=== PATIENT | female | born 1960 | race African-American/Black ===

== ENCOUNTER → 2024-03-21 | Day surgery (SDC) | payer MEDICARE ==
[~2024-03-21] MED LIST: BUPIVACAINE HCL 0.5% INJ 30 ML VIAL INJ ONE; BUPROPION XL150 MG PO; CRESTOR40 MG PO; DEXAMETHASONE SOD PHOS INJ 4 MG/ML SDV ONE; FENTANYL CITRATE/PF 100MCG/2 ML INJ ONE; KETOROLAC TROMETHAMINE 30 MG/ML VIAL ONE; LIDOCAINE 1% W/EPINEPHRINE 20 ML VIAL ONE; LIDOCAINE HCL 2% LOCAL INJ 5 ML SDV VIAL INJ ONE; NP THYROID60 MG PO; ONDANSETRON HCL INJ 2MG/ML 2ML 2 MG/ML VIAL ONE; OZEMPIC0.25 MG/02 SC; PROGESTERONE200 MG PO; PROPOFOL IV EMULSION 10 MG/ML 20 ML VIAL ONE; SEVOFLURANE INHAL SOLN 250 ML PEN BTL ONE; TRIAMTERENE-HCTZ1 EA PO; VITAMIN E400 UNI1 PO
[2024-03-21] MEDS: LACTATED RINGER'S 1,000 ML ONE (06:06)
[2024-03-21] MEDS: CEFAZOLIN SODIUM 2 GM ONE (06:06)
[2024-03-21 06:42] LABS: BASOPHILS # (AUTO) 0.1 (0.0-0.1); BASOPHILS % 1.2 % (0.0-1.0); EOSINOPHILS # (AUTO) 0.2 (0.0-0.4); EOSINOPHILS % 2.9 % (0.0-6.0); HEMATOCRIT 44.8 % (34.2-44.1); HEMOGLOBIN 14.1 g/dL (12.0-16.0); LYMPHOCYTES % 33.7 % (18.0-39.1); MEAN CORPUSCULAR HEMOGLOBIN 27.6 pg (28-32); MEAN CORPUSCULAR HGB CONC 31.5 g/dL (31-35); MEAN CORPUSCULAR VOLUME 87.8 fL (81-99); MONOCYTES # (AUTO) 0.7 (0.2-0.8); MONOCYTES % 11.2 % (4.4-11.3); NEUTROPHILS % 50.5 % (38.7-80.0); PLATELET COUNT 192 x10e3/uL (140-360); RED CELL DISTRIBUTION WIDTH 13.6 % (11.7-14.4)
[2024-03-21 07:08] LABS: ALBUMIN 3.7 g/dL (3.5-5.0); ALBUMIN/GLOBULIN RATIO 1.2 (0.8-2.0); ANION GAP 12.3 mmol/L (8-16); BILIRUBIN,TOTAL 0.3 mg/dL (0.2-1.2); CREATININE, SERUM 0.8 mg/dL (0.57-1.11); POTASSIUM 4.3 mmol/L (3.5-5.1); TOTAL PROTEIN 6.8 g/dL (6.5-8.1)
[2024-03-21 08:29] VITALS: TEMP 97.4
[2024-03-21] MEDS: HYDROCODONE/APAP 7.5MG-325MG 1 EA TAB ONE (08:55)
[2024-03-21 09:35] VITALS: BP 161/92; PULSE 71; RESP 15; O2SAT 100
== END | disposition home or self-care (01) ==
LOC: OR 05:37
PROVIDERS: ATTEND Orthopaedic Surgery
DX: S83.232A Complex tear of medial meniscus, current injury, left knee, initial encounter (principal); S83.282A Other tear of lateral meniscus, current injury, left knee, initial encounter; M65.162 Other infective (teno)synovitis, left knee; M22.42 Chondromalacia patellae, left knee; M67.52 Plica syndrome, left knee; I10 Essential (primary) hypertension; E78.5 Hyperlipidemia, unspecified; E03.9 Hypothyroidism, unspecified; M19.90 Unspecified osteoarthritis, unspecified site; X58.XXXA Exposure to other specified factors, initial encounter; Y93.41 Activity, dancing; Y99.8 Other external cause status; Z79.85 Long-term (current) use of injectable non-insulin antidiabetic drugs; Z79.899 Other long term (current) drug therapy; Z87.891 Personal history of nicotine dependence; Z96.651 Presence of right artificial knee joint; Z82.61 Family history of arthritis
CPT/HCPCS: 29880; 36415; 80053; 85025; 93005; J0690; J1100; J1885; J2003; J2405; J2704; J3010; J7121